=== PATIENT | male | born 1985 | race Caucasian/White ===

== ENCOUNTER 2021-03-18 13:44 | Outpatient (CLI) | payer OTHER ==
[2021-03-18] MEDS ORDERED: MELO7.5T31 PO (14:24)
[2021-03-18] MEDS ORDERED: GABA600T7 PO (14:24)
[2021-03-18] MEDS ORDERED: METH-639 PO (14:24)
[2021-03-18 14:26] LABS: BASOPHILS % (AUTO) 1 % (0-1); EOSINOPHILS % (AUTO) 2 % (1-7); LYMPHOCYTES % (AUTO) 26 % (22-44); MEAN CORPUSCULAR HEMOGLOBIN 32.1 pg (27.5-34.5); MEAN CORPUSCULAR HGB CONC 34.1 g/dL (33.2-36.2); MEAN PLATELET VOLUME 8.8 fL (7.4-10.4); MONOCYTES % (AUTO) 8 % (2-9); NEUTROPHILS % (AUTO) 63 % (42-75); PLATELET COUNT 187 x10^3/uL (130-400); RED BLOOD COUNT 5.05 x10^6/uL (4.38-5.82); RED CELL DISTRIBUTION WIDTH 13.1 % (9.4-14.8)
[2021-03-18 14:39] LABS: MICROSCOPIC NOT IND
[2021-03-18 14:50] LABS: ANION GAP 3 mmol/L (5-15); CALCIUM 8.8 mg/dL (8.5-10.1); CHLORIDE 108 mmol/L (98-107); CREATININE 0.93 mg/dL (0.7-1.3)
[2021-03-18 15:04] LABS: INTERNATIONAL NORMALIZED RATIO 1.01 (0.93-1.1); PROTHROMBIN TIME 10.8 Seconds (9.6-11.5)
== END 2021-03-18 23:59 | disposition home or self-care (01) ==
LOC: STAR 13:44
PROVIDERS: ATTEND Neurological Surgery
DX: Z01.812 Encounter for preprocedural laboratory examination (principal); Z20.822 Contact with and (suspected) exposure to COVID-19; Z01.818 Encounter for other preprocedural examination; Z01.811 Encounter for preprocedural respiratory examination; Z01.810 Encounter for preprocedural cardiovascular examination; R94.31 Abnormal electrocardiogram [ECG] [EKG]; R82.90 Unspecified abnormal findings in urine; R79.1 Abnormal coagulation profile; M54.5 Low back pain; M43.06 Spondylolysis, lumbar region; M54.16 Radiculopathy, lumbar region; I51.7 Cardiomegaly
CPT/HCPCS: 36415; 71046; 80048; 81003; 85025; 85610; 85730; 87635; 93005

== ENCOUNTER 2021-03-22 05:22 | Day surgery (SDC) | payer OTHER ==
[~2021-03-22] VITALS: Ht 185.4 cm; Wt 70.6 kg
[~2021-03-22 05:22] MED LIST: GABA600T7 PO; MELO7.5T31 PO; METH-639 PO
[2021-03-22 06:07] VITALS: BP 109/76
[2021-03-22] MEDS ORDERED: CEFAZOLIN 1,000 MG ONE ×2 (06:29→08:02)
[2021-03-22] MEDS ORDERED: BUPIVACAINE/PF 0.5% ONE (06:29)
[2021-03-22] MEDS ORDERED: EPINEPHRINE 1 MG/ML, 1ML ONE (06:29)
[2021-03-22] MEDS ORDERED: OXYcodone 5 MG/5 ML ORAL.SOL UDC PO PRN (06:30)
[2021-03-22] MEDS ORDERED: ACETAMINOPHEN 325 MG TABLET PO PRN (06:30)
[2021-03-22] MEDS ORDERED: PROMETHAZINE 25 MG/ML, 1ML IVPush PRN (06:30)
[2021-03-22] MEDS ORDERED: METHOCARBAMOL 1,000 MG in DEXTROSE 5% 100 ML IV PRN (06:30)
[2021-03-22] MEDS ORDERED: HYDROmorphone 1 MG/ML, 1ML INJ IVPush PRN (06:30)
[2021-03-22] MEDS ORDERED: LACTATED RINGERS 1,000 ML IV SCH (06:30)
[2021-03-22] MEDS ORDERED: ALBUTEROL SULFATE 2.5 MG/3 ML NPPB PRN (06:30)
[2021-03-22] MEDS ORDERED: LABETALOL 5MG/ML, 20ML IV PRN (06:30)
[2021-03-22] MEDS ORDERED: FENTANYL PF 100 MCG/2ML IV PRN (06:30)
[2021-03-22] MEDS ORDERED: CHLORHEXIDINE 15 ML UDC PO ONE (06:30)
[2021-03-22] MEDS ORDERED: LORazepam 2 MG/ML, 1ML IVPush PRN (06:30)
[2021-03-22] MEDS ORDERED: FENTANYL PF 250 MCG/5ML ONE (06:50)
[2021-03-22] MEDS ORDERED: MIDAZOLAM 1 MG/ML, 2ML ONE (06:50)
[2021-03-22] MEDS ORDERED: PROPOFOL 50 ML ONE (07:20)
[2021-03-22] MEDS ORDERED: BUPIVACAINE/PF-EPI 0.5% 1:200K INFIL ONE (07:41)
[2021-03-22] MEDS ORDERED: LIDOCAINE-MPF 2% ,5ML ONE (07:44)
[2021-03-22] MEDS ORDERED: VANCOMYCIN 500 MG ONE (07:54)
[2021-03-22] MEDS ORDERED: VANCOMYCIN 500 MG IVPB ONE (08:00)
[2021-03-22] MEDS ORDERED: ONDANSETRON 2MG/ML, 2ML ONE (08:02)
[2021-03-22] MEDS ORDERED: DEXAMETHASONE 4 MG/ML, 1ML ONE (08:02)
[2021-03-22] MEDS ORDERED: PROPOFOL 10 MG/ML, 20ML ONE (08:02)
[2021-03-22] MEDS ORDERED: FENTANYL PF 100 MCG/2ML ONE (08:19)
[2021-03-22] MEDS ORDERED: MEPERIDINE/PF 25MG/ML,1ML ONE ×2 (08:19→08:32)
[2021-03-22] MEDS ORDERED: HYDR-3237 PO (08:22)
[2021-03-22] MEDS ORDERED: METH-640 PO (08:22)
[2021-03-22] MEDS: MEPERIDINE/PF 25MG/0.5ML IVPush PRN ×2 (08:25→08:42)
== END 2021-03-22 10:15 | disposition home or self-care (01) ==
LOC: OUT 05:22
PROVIDERS: ATTEND Neurological Surgery
DX: M51.16 Intervertebral disc disorders with radiculopathy, lumbar region (principal); M48.061 Spinal stenosis, lumbar region without neurogenic claudication; M47.26 Other spondylosis with radiculopathy, lumbar region; Z79.1 Long term (current) use of non-steroidal anti-inflammatories (NSAID); Z79.899 Other long term (current) drug therapy; Z87.891 Personal history of nicotine dependence
CPT/HCPCS: 63030; 72100; 95938; 95941; J0171; J0690; J1100; J2175; J2250; J2405; J2704; J2800; J3010; J3370; J7120